=== PATIENT | male | born 1955 | race Caucasian/White ===

== ENCOUNTER 2020-02-12 09:44 | Outpatient (CLI) | payer MEDICARE, OTHER, SELFPAY ==
--- NOTE | 2020-02-12 09:57 | CT_ITS ---
WS: [id number] CT CHEST TECHNIQUE: Contrast enhanced CT of the chest with coronal and sagittal reformatted images. CLINICAL INFORMATION: COUGH, WHEEZING, COPD, BACK PAIN COMPARISON: None. DLP: 884.[address] scans at [facility] use at least one of these dose optimization techniques: automat ed exposure control; mA and/or kV adjustment per patient size (includes targeted exams where dose is matched to clinical indication); or iterative reconstruction. FINDINGS: Advanced chronic emphysematous changes. No acute pulmonary infiltrates. Slight bibasilar atelectasis. No suspicious pulmonary parenchymal abnormalities. No mediastinal or hilar lymphadenopathy. Normal thyroid gland. Moderate aortic atheromatous disease. Coronary calcification. Mild diffuse fatty infiltration of the liver. Adrenal glands are normal. Tiny esophageal hiatal hernia. No axillary lymphadenopathy. Mild thoracic curve convex right. Mild thorac ic kyphosis. Chronic compression of the T12 vertebral body unchanged. CT/CT chest w con* [id number] IMPRESSION: 1. Advanced chronic emphysematous changes. 2. Scattered parenchymal fibrosis and atelectasis in the lung bases unchanged. 3. No acute pulmonary infiltrates. No consolidation or pleural fluid. 4. No mediastinal or hilar lymphadenopathy. 5. Stable chronic compression with anterior wedging at T12. 6. Mild diffuse fatty infiltration liver.
[2020-02-12 10:18] LABS: Blood Urea Nitrogen 15 mg/dL (8-23)
[2020-02-12] MEDS: iohexol 300 mg/mL 100 mL Btl IV (10:22)
== END 2020-02-12 09:45 | disposition home or self-care (01) ==
LOC: RADWPI 09:52
PROVIDERS: Family Provider Nurse Practitioner Family; PCP Nurse Practitioner Family; Visit Provider Nurse Practitioner Family
DX: R05 Cough (principal); R06.2 Wheezing; J44.9 Chronic obstructive pulmonary disease, unspecified; M54.9 Dorsalgia, unspecified; K76.0 Fatty (change of) liver, not elsewhere classified; M48.54XA Collapsed vertebra, not elsewhere classified, thoracic region, initial encounter for fracture
CPT/HCPCS: 71260; 82565; 84520; Q9967